=== PATIENT | male | born 1950 | race Caucasian/White ===

== ENCOUNTER 2017-07-08 06:25 | Day surgery (SDC) | payer MEDICARE, OTHER ==
[~2017-07-08] VITALS: Ht 188 cm; Wt 112.0 kg
--- NOTE | ~2017-07-08 | OP ---
PATIENT NAME: JOAN HARDEN MEDICAL RECORD: [id number] :50 LOCATION:[facility] ADMISSION DATE: SURGEON: GREGORIO NORWOOD MD DATE OF OPERATION: 07/08/2017 REFERRED BY: Darryl Burrell PREOPERATIVE DIAGNOSIS: Chronic kidney disease V. POSTOPERATIVE DIAGNOSIS: Chronic kidney disease V. OPERATION PERFORMED: Creation of a left wrist radiocephalic Olive arteriovenous fistula, also laparoscopic implantation of a peritoneal dialysis catheter and insertion of a subcutaneous extension, and also removal of tunneled dialysis catheter from the right internal jugular vein. SURGEON: Gregorio Norwood MD ANESTHESIA: General endotracheal per [employer]. PREOPERATIVE NOTE: Mr. Harden is a very nice 67-year-old white male patient from [place], [place]. He recently had to be on dialysis with a right internal jugular tunneled dialysis catheter, but his kidney function has returned to the point that he is not at this time requiring dialysis and can have his catheter removed, but I have been asked to create a fistula for long-term access and also to go ahead and implant a peritoneal dialysis catheter as apparently there are plans for him to begin peritoneal dialysis soon. The patient has a protuberant abdomen and I plan to use a peritoneal catheter with a subcutaneous extension for an upper abdominal exit site. DESCRIPTION OF PROCEDURE: Under general endotracheal anesthesia, the patient was prepped and draped in a sterile manner. The left arm was approached first. I examined his arm with a duplex ultrasound that confirmed a good size cephalic vein from the wrist to the deltopectoral groove and a very good sized radial artery as well without calcifications. I then made a longitudinal incision and exposed the cephalic vein and radial artery. The vessels were dissected from the surrounding tissues, controlled with Silastic loops as needed or atraumatic vascular clamps. They were treated with topical papaverine. The vein was ligated distally with 3-0 Vicryl and then divided and beveled. It was flushed with heparinized saline and hydrostatically distended and prepared for anastomosis. It was occluded when needed with an atraumatic bulldog vascular clamp. The radial artery was opened for a distance of about 6 mm. It was flushed proximally and distally with heparinized saline after which the vein was anastomosed end-to-side to the artery with continuous running 7-0 Prolene. When the suture line was completed and the occluding loops and clamps were released, the suture line was hemostatic and there developed immediate excellent flow in the new fistula. There was excellent continuous Doppler pulsatile flow in the cephalic vein in the mid forearm and good radial artery flow above and below the anastomosis. The patient's wound was closed with interrupted inverted 3-0 Vicryl and then running intracuticular 4-0 Monocryl and Dermabond glue. A recheck confirmed persistence of the palpable thrill and Doppler flow in the fistula. A dressing with Tegaderm and Maxorb AG was applied after Cavilon skin prep. Note, the patient's anesthetic was general endotracheal, but he also had a nerve block, OPERATIVE REPORT [id number] JOAN HARDEN which resulted in excellent vasodilation. Next, the patient's abdomen was exposed. A 5-mm XL Optiview type laparoscopic port was inserted through a small incision in the left upper quadrant of the abdomen done with a 0-degree 5-mm laparoscope in place. The abdomen was insufflated and examined and there were no hernias present and no adhesions, no masses or other inflammatory changes. The abdomen was then deflated. I palpated the patient's symphysis pubis and used the stencils provided with the Merit dialysis catheters to identify the site for final location of the deeper Dacron [place] cuff in the rectus sheath and I identified at least proposed subcutaneous tract of the catheter and an exit site in the right upper quadrant. Two incisions were made, each vertical incision at the primary and secondary incision sites and a tunnel bluntly created just anterior to the fascia between these 2 incisions. I then measured the distance between the 2 incisions and found it to be 21 cm. The abdomen was then again insufflated and I used an 18-gauge Cook needle and punctured the anterior rectus sheath slightly above the level which I intended to leave the Dacron [place] cuff. Watching with the laparoscope, I advanced the needle as far as possible in a preperitoneal plane and then entered the peritoneal cavity and then inserted a guidewire and then a 22-Austrian Peel-Away introducer. I took the coil single cuff Merit peritoneal dialysis catheter and I inserted it through the peelaway sheath and positioned it in the pelvis just below the level of the symphysis pubis anteriorly. The peel-away sheath was removed and as I pulled it back, I positioned the deeper of the Dacron [place] cuffs in the preperitoneal space. The catheter was then appropriately shortened and a second subcutaneous extension catheter was shortened appropriately. They were then connected with a titanium connector with 2-0 silk ties securing them additionally and the catheter pulled through subcutaneous tunnel and then an additional curving tunnel to the right was made with a curved sharp trocar and the catheter pulled through the exit site, which was made with a sharp trocar and provided a very good snug fit on the catheter. The Dacron [place] cuff was left about 2 cm from the exit site in the skin. There was no kinking or any other problems with the catheter assembly. Repeat laparoscopic examination then revealed a good catheter positioning without any bleeding or other evidence of complication. The laparoscope was removed with the 5-mm port was left in place though the abdomen was desufflated. I then connected the new catheter to a bag of heparinized IV saline and ran in 1000 cc rapidly, then placed the bag on the floor and drained about 500 cc very rapidly, after that the catheter was disconnected from the tubing and capped. The catheter exit site was treated with Mastisol and quarter inch Steri-Strips. A Biopatch was applied and the catheter then curled and a Medipore dressing applied over that. The laparoscopic port was removed and then all 3 wounds were infiltrated with 0.25% Marcaine without epinephrine. Wound closure was completed with interrupted inverted 3-0 Vicryl and the 2 longer incisions running 4-0 subcuticular Monocryl. All 3 areas were sealed with glue and dressed with Maxorb Ag, Tegaderm, and Cavilon skin prep. The patient was awakened and extubated and taken to the recovery room in stable condition. He tolerated procedure well, blood loss was about 5 cc and was unreplaced. All sponges, instruments, and needles were accounted for. No drain was used and no surgical specimen was submitted for histopathology. Prior to awakening the patient, I prepped the right chest HemoSplit catheter exit site and I then used blunt dissection with a hemostat through the exit site tunnel to free the Dacron [place] cuff from the surrounding subcutaneous tissues OPERATIVE REPORT [id number] JOAN HARDEN and removed the catheter with traction and hemostasis was obtained by holding pressure over the subcutaneous tunnel, later a sterile dressing was applied to that. PLAN: The patient will go home today and come back to see me in my office in about 2 weeks. We will try to get him in to see the [facility] peritoneal dialysis nurses next week so that they can flush his catheter at that time and until he is told that he may shower by the peritoneal dialysis nurses, he is to keep the operative sites dry and clean. He will resume his usual diet as tolerated and his home medications. I am giving him a prescription for 20 [place] 5/325, he can take 1 or if necessary 2 tablets as often as every 4 hours p.r.n. for pain. TRANSINT:[id number] Voice Confirmation ID: [id number] DOCUMENT ID: [id number] GREGORIO NORWOOD MD at 1019 CC: DARRYL BURRELL MD [id number] DICTATION DATE: 07/08/17 1311 BUILDING ECONOMIST: 07/08/17 1412 [facility] 07/08/[address] [facility] [address] [place] [address]
[~2017-07-08 06:25] MED LIST: ASPIRIN EC81 M1 PO; ATARAX 25 MG TA25 MG PO; CATAPRES0.2 MG PO; CLARITIN10 MG/TAB PO; COREG25 MG PO; GABAPENTIN100 MG PO; GLUCOTROL 5 MG T5 MG PO; LANTUS INSULIN10 ML SC; LASIX40 MG PO; METAMUCIL1042 GM PO; NORCO 7.5/325 T1 TA1 PO; NORVASC10 MG PO; NOVOLOG100 U/M1 SQ; PRILOSEC20 MG PO; XANAX0.5 MG PO; ZOCOR40 MG PO
[2017-07-08] MEDS ORDERED: BUMEX2 MG PO (07:18)
[2017-07-08 07:21] LABS: BASOPHILS 0.4 % (0-2); EOSINOPHILS 3.9 % (0-7); HEMATOCRIT 34.2 % (42.0-54.0); HEMOGLOBIN 10.8 g/dL (13.5-17.5); IMMATURE GRANULOCYTES 0.4 % (0-5); LYMPHOCYTES 17.8 % (15-50); MCH 28.6 pg (26.0-34.0); MCHC 31.6 g/dL (31.0-37.0); MCV 90.5 fL (80.0-100.0); MEAN PLATELET VOLUME 10.9 fL (7.4-10.4); NEUTROPHILS 68.5 % (40-80); PLATELET COUNT 279 10x3/uL (130-400); RBC 3.78 10x6/uL (4.20-6.10); RDW 14.9 % (11.5-14.5); WBC 5.7 10x3/uL (4.8-10.8)
[2017-07-08 07:26] LABS: INR 0.99 (0.85-1.17); PROTIME 12.7 SECONDS (11.6-15.0)
[2017-07-08 07:27] LABS: APTT 39.4 SECONDS (22.8-39.4)
[2017-07-08 07:31] VITALS: Ht 188 cm; Wt 112.0 kg
[2017-07-08 07:34] LABS: ANION GAP 16.7 mmol/L (8-16); CALCIUM 8.7 mg/dL (8.5-10.1); CARBON DIOXIDE 28.7 mmol/L (21.0-32.0); CREATININE - SERUM 3.5 mg/dL (0.6-1.3); POTASSIUM - SERUM 4.4 mmol/L (3.5-5.1)
[2017-07-08] MEDS ORDERED: HYDROCODON-ACE1 EAC7 PO (12:50)
== END 2017-07-08 16:30 | disposition home or self-care (01) ==
LOC: D.OPS 06:25
PROVIDERS: Surgery
DX: N18.5 Chronic kidney disease, stage 5 (principal); Z99.2 Dependence on renal dialysis; Z01.812 Encounter for preprocedural laboratory examination

== ENCOUNTER → 2019-11-23 14:03 | Outpatient (CLI) | payer MEDICARE, OTHER ==
[2017-07-08 07:31] VITALS: BMI 31.7
[~2019-11-23 14:03] MED LIST changes: +BUMEX2 MG PO; +HYDROCODON-ACE1 EAC7 PO
== END | disposition home or self-care (01) ==
LOC: D.RAD 14:03
PROVIDERS: ATTEND Internal Medicine Nephrology
DX: R06.02 Shortness of breath (principal)